=== PATIENT | male | born 1960 | race Caucasian/White ===

== ENCOUNTER → 2016-08-18 | Outpatient (CLI) | payer MEDICARE ==
[~2016-08-18] MED LIST: AMARYL2 MG PO; ARTIFICIAL TEAR15 ML OPHTH; CARBAMAZEPINE200 MG PO; COLACE100 MG PO; CPAP INH; CYMBALTA60 MG PO; DILANTIN100 MG PO; DRISDOL 5050000 UNIT PO; FEOSOL325 MG PO; KCL - MICRO-K10 MEQ PO; LASIX20 MG PO; MYRBETRIQ50 MG PO; NORCO 5-325 TA1 EACH PO; OMEPRAZOLE40 MG PO; PRINIVIL OR ZES10 MG PO; RISPERDAL0.25 M1 PO; SEROQUEL50 MG PO; TYLENOL EXTRA500 MG PO; XALATAN2.5 ML OPHTH
--- NOTE | ~2016-08-18 | PUL ---
PATIENT'S NAME: CYRUS SANTIAGO [facility] AGE: 55 Y [address] ROOM: [place] [address] LOCATION: [facility] ADMIT DATE: 08/18/2016 Pulmonary DISCHARGE DATE: FAMILY PHYSICIAN: Leobardo Pinto MD ATTENDING PHYSICIAN: Ezekiel Epps NAME OF PROCEDURE: Sleep study DATE OF PROCEDURE: 08/18/16 TECH: Ami Stevens, PHOTOCOPYING MACHINE OPERATOR [place]: [facility] [id number] MEDICAL HISTORY: Patient is a 55-year-old gentleman with a prior history of obstructive sleep apnea. SLEEP STAGE SUMMARY: The patient was studied for 436 minutes of which he slept 419 minutes. He fell asleep in less than a minute and slept for 96% of the night. Sleep architecture revealed a decline in slow wave and REM sleep. RESPIRATORY SUMMARY: This study was done to titrate CPAP. CPAP was initiated at 6 cm and ultimately titrated to 15 cm. Patient pulled the mask off on several occasions and initially refused to put it back on. CPAP at 15 cm did control the respiratory events well. EKG SUMMARY: Average heart rate during sleep 68 beats per minute. LIMB MOVEMENT SUMMARY: No clinically relevant periodic limb movements were noted. SUMMARY: Obstructive sleep apnea. 15 cm of CPAP appears adequate to control the respiratory events. ASSESSMENT: Obstructive sleep apnea responsive to CPAP at 15 cm. PLAN: Suggest CPAP at 15 cm. Patient will receive results from the ordering provider. DAVIS MERAZ MD [facility]/ PATIENT'S NAME: CYRUS SANTIAGO [facility] AGE: 55 Y [address] ROOM: [place] [address] LOCATION: [facility] ADMIT DATE: 08/18/2016 Pulmonary DISCHARGE DATE: FAMILY PHYSICIAN: Leobardo Pinto MD ATTENDING PHYSICIAN: Ezekeil Epps /[id number] dtt: 09/09/16 1454 , Davis Meraz dtd: 08/27/16 1037
== END | disposition disaster alternative care site (69) ==
LOC: GSLP 07-29 21:00
DX: G47.10 Hypersomnia, unspecified (principal); G47.33 Obstructive sleep apnea (adult) (pediatric)

== ENCOUNTER 2016-09-05 18:19 | Observation (INO) | payer MEDICARE ==
[~2016-09-05] VITALS: Ht 180.3 cm; Wt 148.0 kg
--- NOTE | ~2016-09-05 | HP ---
PATIENT'S NAME: CYRUS SANTIAGO [facility] AGE: 55 Y [address] ROOM: [place] [address] LOCATION: [facility] [place] ADMIT DATE: 09/05/2016 History & Physical DISCHARGE DATE: 09/07/2016 FAMILY PHYSICIAN: Leobardo Pinto MD ATTENDING PHYSICIAN: RJ GUTHRIE DATE OF SERVICE: CHIEF COMPLAINT: Lightheadedness. HISTORY OF PRESENT ILLNESS: History was obtained from the patient. This is a 55-year-old male with remote history of brain cancer diagnosed in 1997, status post craniotomy and radiation, essential hypertension, who was brought in from an assisted living facility. As per patient, he reported that around suppertime 6:30 that he felt lightheaded and so was brought into the emergency room of [facility] as a stroke alert. On arrival to the ER, he was seen by Dr. Mclaughlin, had a CT head done, which essentially was negative except for signs of surgery to the brain and subsequently had an MRI done, which did not show any acute stroke, and the patient was admitted for observation. He reported that during this episode, he denies chest pain, he denied headache except for the lightheadedness, denied blurry of vision, denies any weakness in any extremity except for his chronic right hemiparesis, right upper extremity weaker than the right lower extremity. Denies abdominal pain. Denies neck pain. Denies back pain. He reported that he woke up this morning in his usual state of health without any problem. Denies cough. Denies shortness of breath. Denies diarrhea. Denies urinary symptoms. REVIEW OF SYSTEMS: The 13-elements of review of systems were asked and as documented in the HPI. The others are negative. PAST MEDICAL HISTORY: Includes: 1. History of brain cancer. 2. Essential hypertension though he reports is borderline. 3. Diabetes, he reports is borderline. 4. Per old record, bipolar. PAST SURGICAL HISTORY: Includes craniotomy and vasectomy. SOCIAL HISTORY: He lives in an assisted living facility. Denies history of smoking. PATIENT'S NAME: CYRUS SANTIAGO [facility] AGE: 55 Y [address] ROOM: [place] [address] LOCATION: [facility] [place] ADMIT DATE: 09/05/2016 History & Physical DISCHARGE DATE: 09/07/2016 FAMILY PHYSICIAN: Leobardo Pinto MD ATTENDING PHYSICIAN: RJ GUTHRIE Occasionally takes alcohol. FAMILY HISTORY: Mother at age of 76 had brain cancer. Father in his 70s as well had heart attack. PHYSICAL EXAMINATION: VITAL SIGNS: Blood pressure 133/45, pulse 73, oxygen saturation 97% on room air, respiratory rate 18, and temperature 99.0. GENERAL: Examination reveals a young male who is alert, awake, oriented x3. NEUROLOGIC: Cranial nerves 2 through 12 are intact bilaterally. Sensory is intact bilaterally. Power on the left upper and left lower extremity is full, power on the right upper extremity is a 3, and power in the right lower extremity is a 3+. HEENT: Traumatic surgical scar to the left side of the scalp. Pupils equal and reactive to light bilaterally. Pharynx is normal. Mucosa is moist. NECK: Short, obese, supple. There is no area of tenderness. EARS: There is no obvious ear discharge or drainage. CARDIOVASCULAR: Normal S1, S2. Regular rate and rhythm. CHEST: Clear to auscultation bilaterally. ABDOMEN: Soft, nondistended, no area of tenderness. No palpable organomegaly. Positive bowel sounds. EXTREMITIES: Right upper extremity is swollen, nontender, and no erythema. All other part of the extremities appear normal. RJ GUTHRIE MD ODO/modl /[id number] D: [id number] T: [id number] HISTORY & PHYSICAL
--- NOTE | ~2016-09-05 | ECHO ---
Transthoracic Echocardiography Report (TTE) Demographics Patient Name CYRUS SANTIAGO Date of Study 09/06/2016 Patient Number [id number] Visit Number [id number] Date of 1960 Room Number G3203 Gender Male Number Age 55 year(s) Referring Millie Pennington Manager Flight [address] RVT, Physician RDCS Physician Interpreting Elizabeth Garcia Food Preparation Kitchen Aide Physician A Supervising Ordering Shakeel Sherman MD/MLP Physician MD Nurse Stress Toll Line Mechanic Conclusions Contractility Score Summary Normal Left Ventricular contractility was noted. Summary Technically fair exam. The estimated left ventricular ejection fraction is 65%. Moderate concentric left ventricular hypertrophy. Diastolic assessment reveals Grade II pseudonormal diastolic function . The aortic root is borderline dilated measuring 3.2 cm. The ascending aorta is mildly dilated measuring 3.7 cm. Procedure Type of Study TTE procedure:2D Echocardiogram. Procedure Date Date: 09/06/2016 Start: 02:33 PM Study Location: Inpatient Portable Technical Quality: Fair due to body habitus. Indications:Bilateral lower extremity edema. Appropriate Use Criteria: 7 Patient Status: Routine Rhythm: NSR HR: 74 bpm BP: 156/74 mmHg M-Mode/2D Measurements LV Diastolic Dimension: 5.5 cm LV Systolic Dimension: 4.92 cm LV Septum Diastolic: 1.71 cm LV PW Diastolic: 1.32 cm AO Root Dimension: 3.2 cm Cardiac Output: 10.09 l/min AV Cusp Separation: 2.4 cm RV Diastolic Dimension: 2.69 cm LA volume: 73 ml LVOT: 2.6 cm RV Base: 3.17 cm LVOT VTI: 25.7 cm RV Mid: 2.84 cm LV Stroke volume: 136.38 ml TAPSE: 1.91 cm TDI-S': 17 cm/s Doppler Measurements AV Peak Velocity: 1.49 m/s MV Peak E-Wave: 1.08 m/s AV Peak Gradient: 8.88 mmHg MV Peak A-Wave: 0.8 m/s AV Mean Gradient: 6 mmHg MV E/A Ratio: 1.36 LVOT Peak Velocity: 1.16 m/s MV P1/2t: 74 msec TR Gradient:21.34 mmHg PV Peak Velocity: 1.34 m/s Estimated RAP:5 mmHg PV Peak Gradient: 7.18 mmHg Estimated RVSP: 26 mmHg Estimated PASP: 26.34 mmHg E' Septal Velocity: 0.09 m/s A' Septal Velocity: 0.08 m/s E' Lateral Velocity: 0.12 m/s A' Lateral Velocity: 0.09 m/s Findings Left Ventricle Moderate concentric left ventricular hypertrophy. Diastolic assessment reveals Grade II pseudonormal diastolic function . Right Ventricle Mildly dilated right ventricle. Normal right ventricular systolic performance. Left Atrium The left atrium is moderately dilated. There is no evidence of patent foramen ovale or atrial septal defect by color Doppler. Right Atrium The right atrium is mildly dilated. Unable to properly visualize the IVC subcostally. Mitral Valve Normal mitral valve structure and function. Trivial mitral regurgitation. Aortic Valve Normal aortic valve structure and function. Tricuspid Valve Normal appearing tricuspid valve. Trivial tricuspid regurgitation by color Doppler. Pulmonic Valve Normal pulmonic valve structure and function. Pericardial Effusion No evidence of pericardial effusion. Miscellaneous The aortic root is borderline dilated measuring 3.2 cm. The ascending aorta is mildly dilated measuring 3.7 cm. Pleural Effusion No evidence of pleural effusion. Contractility Score LV regional wall motion:(0-Non visualized 1-Normal 2-Hypokinesis 3-Akinesis 4-Dyskinesis 5-Aneurysm) Signature dtt: Radha Johnson dtd: 09/06/16 1433 Physician Self Edit
--- NOTE | ~2016-09-05 | ER ---
PATIENT'S NAME: CYRUS SANTIAGO [facility] AGE: 55 Y [address] ROOM: [place] [address] [place] [facility] [place]: 09/05/[place] ER/Outpatient Report DISCHARGE DATE: FAMILY PHYSICIAN: Leobardo Pinto MD ATTENDING PHYSICIAN: RJ GUTHRIE Admission date and time dictated in the medical record. I saw the patient at 1822 hours. CHIEF COMPLAINT: Right-sided weakness, speech difficulties. HISTORY OF PRESENT ILLNESS: This patient is a 55-year-old male, [facility] and had some lightheadedness. He has some right-sided weakness and speech difficulties, but this could be a chronic nature. The patient did have in the past a malignant brain tumor, left frontal lobe. This excised and he had radiation treatment. The patient has history of seizures post brain tumor resection. The patient is on Tegretol. The patient did not fall or have any trauma. No recent colds, coughs, flus, fever, chills, or sweats. He did have some lightheaded dizziness. No syncope or near syncope. No headache, eyes, ears, nose, throat, neck, or spine pain. No chest pain or shortness of breath. No abdominal pain, nausea, vomiting, or diarrhea. No incontinence of stool or urine. He does have a history of seizure disorder, history of brain tumor, left frontal lobe. No history of CVA or TIA. He does have a bipolar disorder with anxiety and depression. He does have gvj-fchtvtd-fuafvqrlh diabetes mellitus type 2. HOME MEDICATIONS: See attached medication list. ALLERGIES: NONE. SOCIAL HISTORY: Nonsmoker. Occasional intake of alcohol. SIGNIFICANT PAST MEDICAL HISTORY: Hypertension; obstructive sleep apnea; seizure disorder; fiw-wouzwjj-zeykdequd diabetes mellitus type 2; cancer to brain tumor; bipolar disorder with anxiety, depression; nephrolithiasis, disabled; chronic back pain with lumbar spinal stenosis and some cervical spinal stenosis; insomnia; exogenous obesity; and colon polyps. OPERATION: PATIENT'S NAME: CYRUS SANTIAGO [facility] AGE: 55 Y [address] ROOM: [place] [address] [place] [facility] [place]: 09/05/2016 ER/Outpatient Report DISCHARGE DATE: FAMILY PHYSICIAN: Leobardo Pinto MD ATTENDING PHYSICIAN: RJ GUTHRIE Colonoscopy; brain biopsy; craniotomy with brain tumor resection, left frontal lobe; epidural steroid injections; vasectomy; and radiation therapy. REVIEW OF SYSTEMS: All systems reviewed by me are negative with the exception of those discussed in the history of the present illness. PHYSICAL EXAMINATION: VITAL SIGNS: Temperature 98, tympanic; pulse 76, regular; respirations 16; blood pressure 116/58; O2 saturation on room air was 93%. HEENT: Head: Normocephalic. No abrasion, contusion, laceration, swelling of the scalp or face. Eyes: Extraocular muscles are intact, PERRL. Sclerae and conjunctivae are clear, nonicteric. Ears, Nose, Throat: Clear. NECK: Negative. SPINE: Negative. LUNGS: Clear. HEART: Regular. ABDOMEN: Obese, soft, nondistended, and nontender. Good bowel tones. EXTREMITIES: No peripheral edema, cyanosis, or deformity. NEURO: The patient has some right-sided weakness and little bit of right facial droop and some speech difficulties. He had an NIH stroke scale of 2. SKIN: Clear. LABORATORY DATA: Prolactin was normal at 12.8. Tegretol level was normal at 10.1. Renal panel was normal except for an elevated glucose of 212, low calcium of 8.4. Troponin was normal at less than 0.04, white count was 3100, 63 segs, 34 lymphs, 11 monos, 2 eos, 1 baso. Hemoglobin was 12.5, hematocrit 35.8, platelet count was 60,000. PTT was 29, pro time is 11.4 with an INR of 1.1. EKG showed sinus rhythm. No acute ST elevation, ischemic change, or arrhythmia. CT scan of the head showed a small lesion in the left frontal lobe, question hemorrhage versus recurrent tumor. This area of the lesion was where his previous brain tumor was excised. CT scan was read by Radiology, see dictated and transcribed report. The radiologist did recommend MRI with and without contrast of the brain. IMPRESSION: 1. Right-sided weakness with right facial weakness and speech difficulties. Also, has dizziness and lightheadedness. Etiology uncertain. However, the patient did have a new lesion in the left frontal lobe on CT scan of the brain that could be a small hemorrhage versus recurrent tumor. MRI of the brain is pending. 2. Thrombocytopenia with a platelet count of 60,000. 3. Fqr-xyydiop-bbbyisfzz diabetes mellitus type 2. 4. History of seizure disorder. PATIENT'S NAME: CYRUS SANTIAGO [facility] AGE: 55 Y [address] ROOM: [place] [address] [place] [facility] [place]: 09/05/2016 ER/Outpatient Report DISCHARGE DATE: FAMILY PHYSICIAN: Leobardo Pinto MD ATTENDING PHYSICIAN: RJ GUTHRIE 5. History of obstructive sleep apnea. 6. History of hypertension. 7. History of a bipolar disorder with anxiety, depression. 8. The patient is disabled. 9. Chronic back pain with lumbar spinal stenosis and cervical spinal stenosis. 10. Exogenous obesity. 11. Insomnia. PLAN: Dr. Mclaughlin, neurologist, was here to see this patient. The patient presented with stroke alert. See Dr. Mclaughlin's dictation in regard to his neurological assessment. Dr. Mclaughlin thought the patient should be observed in the hospital. I did talk with the hospitalist, Dr. Neumann. Dr. Neumann is going to admit the patient to neuro trauma for further observation, workup, and treatment as necessary. MRI scan of the brain with and without contrast is pending. Critical care time is 30 minutes. MD JOSE E LOVE/modl /[id number] d: 09/06/16 0031 t: 09/06/16 0523, OUTPATIENT REPORT
--- NOTE | ~2016-09-05 | CON ---
PATIENT'S NAME: CURT SANTIAGO [facility] AGE: 55 Y [address] ROOM: [address] [address] [place] [facility] [place]: 09/05/2016 Consultation DISCHARGE DATE: FAMILY PHYSICIAN: Leobardo Pinto MD ATTENDING PHYSICIAN: RJ GUTHRIE DATE OF CONSULTATION: 09/05/2016 The patient was seen in neurologic consultation on 09/05/2016 at 6:25 p.m. HISTORY OF PRESENT ILLNESS: I was called to the emergency room to evaluate Curt Santiago who has a known history of chronic right upper extremity weakness along with some mild weakness in his right lower extremity and a bit of ambulation deficit due to a prior brain tumor. Back in 1998, he had an oligodendroglioma resected at [facility] and he was placed on antiseizure medication at that time, because he presented with a grand mal seizure. However, he has no history to suggest seizures recurrent. After that postsurgery, the patient has done well and there has been stable history of his tumor. About 1 year ago, he went to [place] to reside at the [facility]. He does have a history of behavioral abnormalities possibly associated with being emotionally labile, acting out, likely history possibly of a bipolar disease. He also has a history of diabetes, nephrolithiasis, and chronic opiate use associated with low back pain and cervical neck back pain. He recently had a workup with a cervical MRI. It showed that he has severe central canal stenosis of the cervical region around C5-C6. Basically, the patient presented to the ER this evening from [place] with some light headed complaints. According to the persons at [place], they felt that he had a little bit more slurring of his speech and was more lethargic. When he was seen here in the emergency room, he was able to lift his right arm and right leg though there was a subtle drift to his right arm; however, we found that from the family that he has this chronic right upper extremity weakness in general. He was sent for a CAT scan of the brain which showed a fairly large area of a left encephalomalacia where the tumor was resected back in 1998. There was a slight hyperdensity measuring a few millimeters in the area of the encephalomalacia. The radiologist felt that this could represent a very tiny small bleed or even some recurrence of his tumor. They recommend that he get an MRI. So basically from a neurologic standpoint, he has no new neurologic deficits. His basic speech was slurred, but this was his again baseline. His right upper extremity power drift was his baseline also and his bilateral lower extremity power was symmetric. The patient did not show any evidence to suggest a new stroke; however again the finding of a small punctate hemorrhage if possible may have been associated with the patient feeling suddenly lethargic. PATIENT'S NAME: CURT SANTIAGO [facility] AGE: 55 Y [address] ROOM: [address] [address] [place] [facility] [place]: 09/05/2016 Consultation DISCHARGE DATE: FAMILY PHYSICIAN: Leobardo Pinto MD ATTENDING PHYSICIAN: RJ GUTHRIE The patient denied any illicit drug use such as cocaine. He does use [place] for chronic back pain. PRIOR MEDICAL HISTORY: History of hypertension and history of possible suicide attempts. PAST SURGICAL HISTORY: He had a vasectomy, a history of resection of the oligodendroglioma, 1998. ALLERGIES: REPORTED TO IBUPROFEN. CURRENT MEDICATIONS: Medication list is unknown at this time. FAMILY HISTORY: Noncontributory here. REVIEW OF SYSTEMS: Mr. Santiago has chronic right upper extremity weakness with only subtle weakness in his right lower extremity. He apparently walks with the use of a walker. He resides at [place] for one year. He was sent in because he had a bit more slurring of the speech and possibly associated with some lethargy; however, the patient appears to be a bit sleepy, but otherwise is communicative. He demonstrates no evidence of any aphasia. He was able to answer all questions appropriately and his naming of objects and parts of objects was completely normal. Cross-body commands were performed. PHYSICAL EXAMINATION: VITAL SIGNS: The patient's vital signs showed a pulse of 62 and regular and normal sinus rhythm, respiration rate 18, blood pressure 168/85, temperature is 98.3. CRANIAL NERVES: There is some facial subtle flattening of the nasolabial fold which is chronic. There was no new facial droop. There is normal facial sensation. NECK: Supple on flexion and extension. There is a power of 4+/5 in the right upper extremity which is chronic in the right lower extremity. The patient displays nearly 5/5 power on proximal and distal muscle power; however there is increased tone in the right lower extremity. In the left upper extremity and the left lower extremity, there is normal power and normal tone. Reflexes were diminished in the right upper extremity to +1 at the biceps and triceps. Absent patellar reflex on the right and absent ankle jerk. Sensory exam is completely intact distinguishing [id number]-[id number] sensation. Right to left discrimination was completely normal. There was no extinction. IMPRESSION: PATIENT'S NAME: CURT SANTIAGO [facility] AGE: 55 Y [address] ROOM: [place] [address] [place] [facility] [place]: 09/05/2016 Consultation DISCHARGE DATE: FAMILY PHYSICIAN: Leobardo Pinto MD ATTENDING PHYSICIAN: RJ GUTHRIE Mr. Santiago is a 55-year-old male patient with few medical issues neurologically. He has been stable since the resection of an oligodendroglioma in 1998. Post surgery, he chronically has some weakness of his right upper lower extremity more than his right lower extremity. He appears to be in his baseline according to his family who know him well. His sister was here present and she reports that he was just a bit more lethargic than usual, but otherwise, she did not notice any change in his speech pattern or his weakness. The patient will be admitted overnight for observation and we will receive an MRI of the brain for ruling out any evidence of the small hemorrhage. The etiology for small hemorrhage would be at this point is obscure and we would rule out evidence of a small infarct; however the clinically it is difficult to find anything obviously new neurologically with the patient's presentation. I will follow up with the patient's neurologic status as he will be placed on a monitored bed overnight. MD AURORA OLMOS/cristal /[id number] d: 09/06/16 0039 t: 09/09/16 1554, CONSULTATION REPORT
--- NOTE | ~2016-09-05 | DS ---
PATIENT'S NAME: CYRUS SANTIAGO [facility] AGE: 55 Y [address] 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 SECONDARY DIAGNOSES: 1. History of oligodendroglioma in 1998, status post resection, radiation, chemotherapy. 2. Grade 2 pseudonormal diastolic dysfunction. 3. Dilated aortic root at 3.2 cm and ascending aorta at 3.7 cm. 4. Mild hypokalemia, chronic. 5. Thrombocytopenia, unclear etiology. 6. Chronic mild right hemiparesis. 7. Right arm edema, chronic x8 months per the patient. 8. Obstructive sleep apnea. 9. Morbid obesity. CONSULTATIONS: Neurology, Dr. Mclaughlin, on 09/05/2016. PROCEDURES: Echocardiogram, abnormal findings listed above included abnormal diastolic dysfunction, dilated aortic root, and mild concentric left ventricular hypertrophy. His left ventricular ejection fraction is estimated at 65%. BRIEF HISTORY: Mr. Santiago has been living at [facility] for the past year and has a history of oligodendroglioma. According to his sister with whom I spoke yesterday he does sometimes have fluctuation in his mental status. It seems to be somewhat worse with lightheadedness. The staff noted more slurring of his speech and he seemed to be more lethargic. He does have chronic right arm weakness and was noted to have a drift in the right arm on neurologic evaluation by Dr. Mclaughlin on admission, but essentially his exam was close to baseline in the emergency room. Imaging did reveal an area of encephalomalacia on CT scan and followup MRI showed a small lesion in the left frontal white matter with an appearance most consistent with cavernoma which has bled, there was no evidence consistent with tumor. The patient has been monitored here over the last 24 hours and is doing well, his speech is normal. He reports to me that he feels a little sleepy. He has been on CPAP for at least a couple of years and had a repeat titration study a PATIENT'S NAME: CYRUS SANTIAGO [facility] AGE: 55 Y [address] ROOM: [address] [address] LOCATION: [facility] ADMIT DATE: 09/05/2016 Discharge Summary DISCHARGE DATE: 09/07/2016 FAMILY PHYSICIAN: Leobardo Pinto MD ATTENDING PHYSICIAN: Willi Beckford couple weeks ago. He has not received results of this titration study from Dr. Cunningham as of yet, but I advised him to follow up with Dr. Cunningham to get the results and he may need change in the settings of his CPAP machine. The patient had a seizure at the time of diagnosis of his brain tumor and has been treated with carbamazepine chronically to prevent seizures. However, he has had thrombocytopenia for several years, he has also had depression, behavior problems, and suicidality. I discussed this with his sister and she confirms that the thrombocytopenia occurred after the drug was started and the suicidal problem was a couple years ago, also while on carbamazepine. After discussion with Dr. Mclaughlin, I decided to discontinue the carbamazepine. I did inform his sister of this this morning. He was given a loading dose of Dilantin and started on Dilantin 100 mg p.o. t.i.d. He is instructed to follow up with his outpatient neurologist, Dr. Epps. The Dilantin level is pending at the time of this dictation. The patient has chronic hypokalemia, he is on b.i.d. supplements. We will check his potassium level and adjust the dose as needed. This is also pending at the time of dictation. INSTRUCTIONS AT THE TIME OF DISCHARGE: Diet; ADA, low carb, low fat. Activity; walk 30 minutes a day. Follow up with Dr. Epps, Neurology, in 2 weeks. Prior to that he should have a CT scan of the head, noncontrast. It is also recommended that he have an MRI scan in 2 to 3 months with and without contrast to follow up on the new imaging findings. He is to follow up with his PCP in less than 1 week. I have recommended new cardiology evaluation to review the abnormal findings on his echocardiogram. Dr. Cunningham, he at least needs a phone call to him to determine new orders for CPAP if any. MEDICATIONS AT THE TIME OF DISCHARGE: 1. Almo 5/325 one p.o. b.i.d. 2. Docusate 100 p.o. daily. 3. Cymbalta 60 mg daily. 4. Lasix 20 mg daily. 5. Amaryl 2 mg p.o. b.i.d. with meals. 6. Xalatan drops, both eyes q.h.s. 7. Prinivil 10 daily. PATIENT'S NAME: CYRUS SANTIAGO [facility] AGE: 55 Y [address] ROOM: [place] [address] LOCATION: [facility] ADMIT DATE: 09/05/2016 Discharge Summary DISCHARGE DATE: 09/07/2016 FAMILY PHYSICIAN: Leobardo Pinto MD ATTENDING PHYSICIAN: Willi Beckford 8. Omeprazole 40 every day. 9. Potassium chloride 10 mEq p.o. b.i.d. 10. Seroquel 50 mg q.h.s. 11. Vitamin D 50,000 units weekly on Thursday. 12. Myrbetriq 50 mg daily. 13. Tylenol 500 mg t.i.d. p.r.n. pain. I have written instructions not to exceed 4 g of Tylenol in 24 hours. 14. Artificial Tears q.i.d. p.r.n. dry eyes. 15. Dilantin 100 mg p.o. t.i.d. AMBAR MARTINEZ MD LM/kirkl /[id number] d: 09/08/16 0534 t: 09/08/16 1433, DISCHARGE SUMMARY
--- NOTE | ~2016-09-05 | HP ---
PATIENT'S NAME: CYRUS SANTIAGO [facility] AGE: 55 Y [address] ROOM: [place] [address] LOCATION: [facility] [place] ADMIT DATE: 09/05/2016 History & Physical DISCHARGE DATE: 09/07/2016 FAMILY PHYSICIAN: Leobardo Pinto MD ATTENDING PHYSICIAN: RJ GUTHRIE DATE OF SERVICE: ADDENDUM: ASSESSMENT AND PLAN: 1. Obstructive sleep apnea. We will continue the patient on CPAP. 2. Thrombocytopenia, present on admission, unknown etiology. Apparently has been present since last year. 3. Leukopenia, present on admission, unknown etiology. RJ GUTHRIE MD ODO/kirkl /[id number] D: [id number] T: [id number] HISTORY & PHYSICAL
--- NOTE | ~2016-09-05 | HP ---
PATIENT'S NAME: CYRUS SANTIAGO [facility] AGE: 55 Y [address] ROOM: [address] [address] LOCATION: [facility] [place] ADMIT DATE: 09/05/2016 History & Physical DISCHARGE DATE: 09/07/2016 FAMILY PHYSICIAN: Leobardo Pinto MD ATTENDING PHYSICIAN: RJ GUTHRIE DATE OF SERVICE: ADDENDUM: PHYSICAL EXAMINATION: SKIN: No rash. No skin breakdown elapsed. LABORATORY DATA: WBC 3.1, hemoglobin 12.5, hematocrit 35.8, platelets 60. Sodium 142, creatinine 1.0, BUN 13, glucose 212, potassium 3.9, chloride 107, bicarb 25, calcium 8.4, phosphorus 3.2, albumin 3.0, procalcitonin 12.8. RADIOLOGY DATA: MRI, small lesion in the left frontal white matter, has an appearance most consistent with cavernoma, which has blood. There is no evidence of tumour. Cavernomas can be seen after radiation therapy. We will add for interval followup of CT to ensure stability and then followup MRI in perhaps 2 to [address] of the brain, there is a small lesion in the left frontal lobe, which may be hemorrhagic tumor. There are almost chronic changes including previous surgery. ASSESSMENT AND PLAN: This is a 55-year-old male, who presents with some lightheadedness. 1. Lightheadedness, present on admission. We will do orthostatic vital signs to rule out orthostatic hypotension. MRI is essentially negative as workup for stroke. However, we will complete the other workup for stroke. We will do a carotid duplex scan in the morning. We will also get an echocardiogram in the morning. 2. Right upper extremity edema, present on admission. The patient reports this is chronic. However, we will do a duplex scan of his right upper extremity to rule out a deep venous thrombosis. 3. Right hemiparesis, present on admission. This is chronic for the patient since the left craniotomy. We will continue with PT and OT. 4. Diabetes type 2. Likely, this appears to be uncontrolled. We will check hemoglobin A1c. We will put the patient on a NovoLog sliding scale moderate. 5. Remote history of brain tumor, present on admission. Last chemo was in PATIENT'S NAME: CYRUS SANTIAGO [facility] AGE: 55 Y [address] ROOM: [address] [address] LOCATION: [facility] [place] ADMIT DATE: 09/05/2016 History & Physical DISCHARGE DATE: 09/07/2016 FAMILY PHYSICIAN: Leobardo Pinto MD ATTENDING PHYSICIAN: RJ GUTHRIE year 1999. The line of management was explained to the patient, who did not have any questions at this time. MD SUKI CHURCHILL/kirkl /[id number] D: [id number] T: [id number] HISTORY & PHYSICAL
[~2016-09-05 18:19] MED LIST changes: -ARTIFICIAL TEAR15 ML OPHTH; -DILANTIN100 MG PO; -DRISDOL 5050000 UNIT PO; -PRINIVIL OR ZES10 MG PO; -SEROQUEL50 MG PO; -TYLENOL EXTRA500 MG PO
[2016-09-05 18:35] LABS: BASOPHIL % 0.6 %; EOSINOPHIL # 0.1 K/uL (0.0-0.5); EOSINOPHIL % 2.2 %; HEMATOCRIT 35.8 % (37.0-53.0); HEMOGLOBIN 12.5 g/dL (12.0-17.0); LYMPHOCYTE # 0.7 K/uL (0.8-4.0); LYMPHOCYTE % 23.6 %; MCH 33.2 pg (27.0-34.0); MCHC 34.9 gm/dL (32.0-36.5); MONOCYTE # 0.3 K/uL (0.0-1.0); MONOCYTE % 10.9 %; NEUTROPHIL % 62.7 %; NRBC % 0 /100WBC (0-0.00); PLATELET COUNT 60 K/uL (150-450); RBC 3.77 M/uL (4.00-6.00); RDW-CV 13.2 % (11.9-14.6); WBC 3.1 K/uL (4.0-11.0)
[2016-09-05 18:42] LABS: INR - (THERAPEUTIC) 1.1 (0.9-1.1); PROTIME 11.4 SECONDS (9.6-11.1); PTT 29 SECONDS (25-32)
[2016-09-05 18:52] LABS: ANION GAP 13.9 (10.0-19.0); BLOOD UREA NITROGEN 13 mg/dL (6-24); CALCIUM 8.4 mg/dL (8.5-10.5); CHLORIDE 107 mMol/L (96-110); CO2 25 mMol/L (22-32); ESTIMATED GFR (MDRD EQUATION) > 60; PHOSPHORUS 3.2 mg/dL (2.5-4.9); SODIUM 142 mMol/L (135-145)
[2016-09-05 18:53] LABS: POTASSIUM 3.9 mMol/L (3.7-5.1)
[2016-09-06] MEDS ORDERED: PRINIVIL OR ZES10 MG PO (02:28)
[2016-09-06] MEDS ORDERED: SEROQUEL50 MG PO (02:29)
[2016-09-06] MEDS ORDERED: TYLENOL EXTRA500 MG PO (02:30)
[2016-09-06] MEDS ORDERED: ARTIFICIAL TEAR15 ML OPHTH (02:31)
[2016-09-06] MEDS ORDERED: DRISDOL 5050000 UNIT PO (02:33)
[2016-09-06 04:19] LABS: BASOPHIL % 0.6 %; EOSINOPHIL # 0.1 K/uL (0.0-0.5); EOSINOPHIL % 2.3 %; HEMATOCRIT 36.6 % (37.0-53.0); HEMOGLOBIN 12.6 g/dL (12.0-17.0); LYMPHOCYTE # 0.9 K/uL (0.8-4.0); MCH 32.4 pg (27.0-34.0); MCHC 34.4 gm/dL (32.0-36.5); MCV 94.1 fl (83.0-98.0); MONOCYTE # 0.5 K/uL (0.0-1.0); MONOCYTE % 13.6 %; MPV 8.4 fl (9.4-12.4); NEUTROPHIL % 56.5 %; NRBC % 0 /100WBC (0-0.00); RBC 3.89 M/uL (4.00-6.00); RDW-CV 13.3 % (11.9-14.6); WBC 3.5 K/uL (4.0-11.0)
[2016-09-06 04:21] LABS: PLATELET COUNT 58 K/uL (150-450)
[2016-09-06 04:31] LABS: ANION GAP 11.4 (10.0-19.0); BLOOD UREA NITROGEN 13 mg/dL (6-24); CALCIUM 8.1 mg/dL (8.5-10.5); CHLORIDE 110 mMol/L (96-110); CO2 27 mMol/L (22-32); CREATININE 0.8 mg/dL (0.6-1.3); ESTIMATED GFR (MDRD EQUATION) > 60; MAGNESIUM 2.2 mg/dL (1.3-2.6); PHOSPHORUS 3.4 mg/dL (2.5-4.9); POTASSIUM 3.4 mMol/L (3.7-5.1); SODIUM 145 mMol/L (135-145)
[2016-09-07] MEDS ORDERED: DILANTIN100 MG PO (11:02)
[2016-11-21] MEDS ORDERED: DILANTIN100 MG PO ×2 (10:19→10:20)
[2016-11-21] MEDS ORDERED: FEOSOL325 MG PO (10:21)
== END 2016-09-07 11:14 | disposition disaster alternative care site (69) ==
LOC: GMED 18:19 → GMSU 20:09
PROVIDERS: Emergency Medicine; ADMIT Hospitalist
DX: R29.810 Facial weakness (principal); F80.9 Developmental disorder of speech and language, unspecified; G93.89 Other specified disorders of brain; G81.90 Hemiplegia, unspecified affecting unspecified side; Z85.841 Personal history of malignant neoplasm of brain; E11.9 Type 2 diabetes mellitus without complications; E87.6 Hypokalemia; D69.59 Other secondary thrombocytopenia; F41.8 Other specified anxiety disorders; F31.9 Bipolar disorder, unspecified; G47.33 Obstructive sleep apnea (adult) (pediatric); R60.0 Localized edema; E66.01 Morbid (severe) obesity due to excess calories; I10 Essential (primary) hypertension; Z98.52 Vasectomy status; Z79.899 Other long term (current) drug therapy; Z98.890 Other specified postprocedural states
CPT/HCPCS: A9577; G0378; J1644; J7030; J7040; Q2009

== ENCOUNTER → 2016-09-05 | Outpatient (CLI) | payer MEDICARE | END | disposition disaster alternative care site (69) | LOC: GAMB 18:02 | DX: I63.9 Cerebral infarction, unspecified (principal); R47.81 Slurred speech; R29.898 Other symptoms and signs involving the musculoskeletal system | CPT/HCPCS: A0425; A0427 ==

== ENCOUNTER → 2016-09-16 | Outpatient (CLI) | payer MEDICARE ==
[~2016-09-16] MED LIST changes: +ARTIFICIAL TEAR15 ML OPHTH; +DILANTIN100 MG PO; +DRISDOL 5050000 UNIT PO; +PRINIVIL OR ZES10 MG PO; +SEROQUEL50 MG PO; +TYLENOL EXTRA500 MG PO
== END | disposition disaster alternative care site (69) ==
LOC: GRAD 13:57
DX: I61.9 Nontraumatic intracerebral hemorrhage, unspecified (principal); G93.89 Other specified disorders of brain

== ENCOUNTER → 2016-11-13 | Outpatient (CLI) | payer MEDICARE, MEDICAID ==
[2016-11-13 11:01] LABS: CREATININE 1.2 mg/dL (0.6-1.3)
[2016-11-13 11:05] LABS: ESTIMATED GFR (MDRD EQUATION) > 60
== END | disposition disaster alternative care site (69) ==
LOC: GRAD 09-24 09:56 → GLAB 10:00 → GRAD 11:00
PROVIDERS: Internal Medicine
DX: D18.02 Hemangioma of intracranial structures (principal); N13.2 Hydronephrosis with renal and ureteral calculous obstruction; Q61.02 Congenital multiple renal cysts; I70.90 Unspecified atherosclerosis; E87.6 Hypokalemia; G81.91 Hemiplegia, unspecified affecting right dominant side; K76.9 Liver disease, unspecified; R60.0 Localized edema; Z98.890 Other specified postprocedural states
CPT/HCPCS: A9577

== ENCOUNTER 2016-11-25 07:04 | Day surgery (SDC) | payer MEDICARE, MEDICAID ==
[~2016-11-25] VITALS: Ht 180.3 cm; Wt 145.0 kg
--- NOTE | ~2016-11-25 | OR ---
PATIENT'S NAME: CYRUS SANTIAGO [facility] AGE: 56 Y [address] ROOM: [place] [address] LOCATION: [facility] [place] ADMIT DATE: 11/25/2016 OR/Procedure Report DISCHARGE DATE: FAMILY PHYSICIAN: Dominique Dickens ATTENDING PHYSICIAN: Jesse Velarde SURGEON: Jesse Velarde MD ACETYLENE BURNER: DATE OF PROCEDURE: 11/25/2016 PREOPERATIVE DIAGNOSIS: Right proximal ureteral stone. POSTOPERATIVE DIAGNOSIS: Right proximal ureteral stone. PROCEDURES PERFORMED: 1. Cystoscopy, insertion of stent 6-Slovak, 28 cm. 2. Extracorporeal shock wave lithotripsy of right proximal ureteral stone. DESCRIPTION OF PROCEDURE: The patient was accompanied to cystoscopy room and after adequate anesthesia, was placed in a dorsal lithotomy position, prepped and draped. A 20 cystoscope was passed. The anterior urethra was normal. Prostatic fossa was normal. The bladder was examined with a 30 and 70-degree lens system and it was normal. A guidewire was passed and got up to the stone in the right proximal ureter and I had difficulty getting the guidewire past the stone. Therefore, I passed the yellow open-ended catheter, one was able to manipulate it and past the stone. It was removed. The guidewire was left in place and over the guidewire, a 6-Slovak, 28 cm stent was passed. It coiled nicely in the kidney, the other in the bladder. He was then moved to Operating Room 5 and placed on the lithotripsy table. The stone was localized and impulses were directed at the stone starting at 16 kV increasing to 20 kV. A total of 2000 impulses were directed. The procedure was terminated at this point, because of his low platelet count. It was felt that it would be better to limit the amount of shock waves and if they are still not adequately fragment it with the stent set in place for two weeks, it would cause dilatation and then it would be easier to completely fragment. He was therefore accompanied to recovery area. PLAN: We will keep him overnight for observation because of his low platelet count. PATIENT'S NAME: CYRUS SANTIAGO [facility] AGE: 56 Y [address] ROOM: [place] [address] LOCATION: [facility] [place] ADMIT DATE: 11/25/2016 OR/Procedure Report DISCHARGE DATE: FAMILY PHYSICIAN: Dominique Dickens ATTENDING PHYSICIAN: Jesse Velarde MD JESSICA NEGRETE/modl /[id number] CC: STEVE Bobby d: 11/25/16 1155 t: 11/26/16 0441, OPERATIVE SUMMARY
--- NOTE | ~2016-11-25 | HP ---
PATIENT'S NAME: CYRUS SANTIAGO [facility] AGE: 56 Y [address] ROOM: [place] [address] LOCATION: [facility] [place] ADMIT DATE: 11/25/2016 History & Physical DISCHARGE DATE: FAMILY PHYSICIAN: Dominique Dickens ATTENDING PHYSICIAN: Jesse Pacheco DATE OF SERVICE: HISTORY OF PRESENT ILLNESS: A 56-year-old male who has a long history of passing ureteral stones with intermittent bouts of pain both on the right and left side. He was first seen here in January 2016 because of hematuria. In 1999, stones were removed and it was a calcium oxalate stone. He has had no further trouble since then. His voiding pattern is fairly normal except he does have nocturia times 4 to 5. During the daytime, he voids every 2 to 3 hours. In November 2015, he was started on Ditropan 5 mg b.i.d. with poor response. He has no other history of urinary tract disease or infections. Family historyis unremarkable. In 1997, he was seen at the [facility] because of a brain tumor. At that time, he had a craniotomy and was treated with radiation and was not expected to live more than 3 to 4 years, which of course has not been accurate. Presently, he is living at an assisted living in [place], but basically takes care of himself. In January 2016, he was scheduled for cysto, ESWL of his stones, but at that time he was found to have a very low platelet count. 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 He was scheduled several times for followup, but he failed to keep his appointments. He was scheduled for followup CT scan in October 2016, which he did not keep. He also did not keep his 2016 appointment with me. He then had a followup CT scan that showed a 7 mm stone in the right proximal ureter with some hydronephrosis. He is scheduled now for cystoscopy, stents, and ESWL. PAST MEDICAL HISTORY: PATIENT'S NAME: CYRUS SANTIAGO [facility] AGE: 56 Y [address] ROOM: [place] [address] LOCATION: [facility] [place] ADMIT DATE: 11/25/2016 History & Physical DISCHARGE DATE: FAMILY PHYSICIAN: Dominique Dickens ATTENDING PHYSICIAN: Jesse Pacheco See history and physical from Family Practice. PHYSICAL EXAMINATION: GENERAL: A well-developed, well-nourished male. CHEST: Clear. HEART: Normal sinus rhythm. ABDOMEN: Soft with no palpable masses. : Normal penis. Testicles are normal. Prostate is slightly enlarged and benign. RECTAL: Negative. IMPRESSION: 1. Bilateral nephrolithiasis. 2. Right proximal ureteral stone. PLAN: Cysto, stent, and ESWL. JESSE PACHECO MD EKL/modl /[id number] D: [id number] T: [id number] HISTORY & PHYSICAL
[2016-11-25 08:03] LABS: BASOPHIL % 0.8 %; EOSINOPHIL # 0.1 K/uL (0.0-0.5); EOSINOPHIL % 2.9 %; HEMATOCRIT 36.9 % (37.0-53.0); HEMOGLOBIN 13.2 g/dL (12.0-17.0); IMMATURE GRANULOCYTE % 0.3 %; LYMPHOCYTE # 0.8 K/uL (0.8-4.0); MCH 33.8 pg (27.0-34.0); MCHC 35.8 gm/dL (32.0-36.5); MCV 94.4 fl (83.0-98.0); MONOCYTE # 0.4 K/uL (0.0-1.0); MONOCYTE % 10.6 %; MPV 8.6 fl (9.4-12.4); NEUTROPHIL # (ANC) 2.4 K/uL (1.4-9.0); NEUTROPHIL % 63.4 %; NRBC % 0 /100WBC (0-0.00); PLATELET COUNT 50 K/uL (150-450); RBC 3.91 M/uL (4.00-6.00); RDW-CV 13.6 % (11.9-14.6); WBC 3.8 K/uL (4.0-11.0)
[2016-11-25 08:18] LABS: ALBUMIN 3.1 gm/dL (3.5-5.0); ALK PHOS 256 IU/L (33-138); ALT 31 IU/L (12-78); ANION GAP 10.7 (10.0-19.0); AST 37 IU/L (10-40); BLOOD UREA NITROGEN 16 mg/dL (6-24); CALCIUM 8.6 mg/dL (8.5-10.5); CHLORIDE 113 mMol/L (96-110); CO2 26 mMol/L (22-32); CREATININE 0.9 mg/dL (0.6-1.3); ESTIMATED GFR (MDRD EQUATION) > 60; POTASSIUM 3.7 mMol/L (3.7-5.1); TOTAL BILIRUBIN 0.8 mg/dL (0.0-1.5); TOTAL PROTEIN 6.7 g/dL (6.0-8.4)
[2016-11-25 08:19] LABS: SODIUM 146 mMol/L (135-145)
--- NOTE | 2016-11-25 14:54 | NUR ---
Significant Event:incontinent of urine-does seem to dribble constantly, has voided x2 per urinal but incontinent most of the time, strained all urine, urine is pink with scant blood fibers, right arm is larger than left-patient states it has been like that for 1 1/2 years, medications restarted, patient up with assist but does not want help, explained we do not want him to fall so we would need to be at his side, denies he is diabetic but takes Amaryl not very diet compliant, platelets were low before OR given 1 unit platelets. Follow up:
[2016-11-26 03:26] LABS: BASOPHIL % 0.7 %; EOSINOPHIL # 0.1 K/uL (0.0-0.5); EOSINOPHIL % 3.1 %; HEMATOCRIT 37.3 % (37.0-53.0); HEMOGLOBIN 13.4 g/dL (12.0-17.0); IMMATURE GRANULOCYTE % 0.5 %; LYMPHOCYTE # 0.9 K/uL (0.8-4.0); LYMPHOCYTE % 21.2 %; MCH 33.5 pg (27.0-34.0); MCHC 35.9 gm/dL (32.0-36.5); MCV 93.3 fl (83.0-98.0); MONOCYTE # 0.5 K/uL (0.0-1.0); MONOCYTE % 12.9 %; MPV 8.6 fl (9.4-12.4); NEUTROPHIL # (ANC) 2.6 K/uL (1.4-9.0); NEUTROPHIL % 61.6 %; NRBC % 0 /100WBC (0-0.00); RDW-CV 13.4 % (11.9-14.6); WBC 4.2 K/uL (4.0-11.0)
[2016-11-26 03:41] LABS: PLATELET COUNT 67 K/uL (150-450)
--- NOTE | 2016-11-26 07:22 | NUR ---
Significant Event: *RESUMED CARE FROM * A&Ox3, HTN: SBP 170s-150s. All other VSS on room air/CPAP. Bloody urine, incontinenet at times. Denies pain. 1-2PA. Repositions self. Right arm edema. Follow up:
--- NOTE | 2016-11-26 11:13 | NUR ---
SPOKE TO YUNIER AT [facility] AND INFORMED HER THAT CYRUS NEED A RIDE BACK TO [facility], SHE REPORTS THAT THEY WILL BE HERE IN 15-20 MINUTES TO GET CYRUS. I INFORMED HIS NURSE OF THIS.
--- NOTE | 2016-11-26 11:31 | NUR ---
Patient is alert and oriented, slightly hypertensive. R) arm is flaccid from previous craniotomy. SBA with walker. His urine is still bloody, needs to strain all urine for kidney stones. Only complaint of pain was a chronic headache.
--- NOTE | 2016-11-26 11:33 | NUR ---
D: ORDERS RECEIVED FOR THE PATIENT TO BE DISCHARGED TO THE ASSISTED LIVING FACILITY TODAY. I: DISMISSAL INSTRUCTIONS WERE PREPARED AND REVIEWED WITH THE PATIENT VIRTUALLY. THE FOLLOWING INFORMATION WAS WAS DISCUSSED INCLUDING KRAMES TEACHING SHEETS PROVIDED: STENTS, URETERAL, UNDERSTANDING KIDNEY STONES, IDENTIFYING KIDNEY STONES, PREVENTING KIDNEY STONES, AND PREVENTING DVT. NO NEW MEDICATIONS WERE STARTED. DISCUSSED FOLLOW UP APPOINTMENTS AND A KUB THAT IS SCHEDULE HERE AT THE HOSPITAL ON December. THE PATIENT WAS INSTRUCTED TO STRAIN HIS URINE AND BRING ALL STONE FRAGMENTS TO THE OFFICE UPON FOLLOW UP. R: THE PATIENT VERBALIZED UNDERSTANDING OF THE DISMISSAL EDUCATION AT THE TIME OF TEACHING WITH NO FURTHER QUESTIONS. A COURTESY PACKET WAS PROVIDED TO THE [employer] [employer] TRANSPORTING THE PATIENT WITH ALL OF THIS INFORMATION P: THE ABOVE INFORMATION WAS SHARED WITH THE PRIMARY NURSE AND THE CHARGE NURSE THAT THE PATIENT DISMISSAL EDUCATION WAS COMPLETED. HE IS READY FOR DISCHARGE TO THE FRONT DOOR VIA WHEEL CHAIR BY NURSING STAFF.
== END 2016-11-26 11:45 | disposition other institution (70) ==
LOC: GSDC 07:04 → GMSU 07:05 → GSDC 14:00
PROVIDERS: Urology
PROC: 0TF6XZZ Fragmentation in Right Ureter, External Approach (ICD-10-PCS; principal; 2016-11-25)
PROC: 0T768DZ Dilation of Right Ureter with Intraluminal Device, Via Natural or Artificial Opening Endoscopic (ICD-10-PCS; 2016-11-25)
DX: N20.1 Calculus of ureter (principal); E78.5 Hyperlipidemia, unspecified; E11.9 Type 2 diabetes mellitus without complications; I10 Essential (primary) hypertension; R56.9 Unspecified convulsions; E87.6 Hypokalemia; F32.9 Major depressive disorder, single episode, unspecified; R25.1 Tremor, unspecified; M51.16 Intervertebral disc disorders with radiculopathy, lumbar region; G47.30 Sleep apnea, unspecified; M47.26 Other spondylosis with radiculopathy, lumbar region; Z88.6 Allergy status to analgesic agent; Z79.899 Other long term (current) drug therapy; Z98.890 Other specified postprocedural states
CPT/HCPCS: C1769; C2617; J0713; J2001; J7030; J7040; P9035

== ENCOUNTER → 2016-12-11 | Outpatient (CLI) | payer MEDICARE ==
--- NOTE | ~2016-12-11 | HP ---
PATIENT'S NAME: CYRUS SANTIAGO [facility] AGE: 56 Y [address] ROOM: [place] [address] LOCATION: [facility] ADMIT DATE: 12/11/2016 History & Physical DISCHARGE DATE: FAMILY PHYSICIAN: Dominique Dickens ATTENDING PHYSICIAN: Jesse Pacheco DATE OF SERVICE: INTERIM HISTORY: This is a 56-year-old male who has a long history of having stones. He recently had a stent placement and ESWL of a stone in the right proximal ureter. His followup KUB still revealed significant stone in that area and he is seen now for 2nd treatment. Please see his history and physical dictated on November 25, 2016 for complete past history. PAST MEDICAL HISTORY: See history and physical from family practice, Dr. Dickens. PHYSICAL EXAMINATION: GENERAL: Well-developed, well-nourished male. CHEST: Clear. HEART: Normal sinus rhythm. ABDOMEN: Soft but no palpable masses. : Normal penis. Testicles are normal. Prostate is slightly enlarged and benign. RECTAL: Negative. IMPRESSION: Right proximal ureteral stone. PLAN: ESWL. JESSE PACHECO MD EKL/modl PATIENT'S NAME: CYRUS SANTIAGO [facility] AGE: 56 Y [address] ROOM: [place] [address] LOCATION: [facility] ADMIT DATE: 12/11/2016 History & Physical DISCHARGE DATE: FAMILY PHYSICIAN: Dominique Dickens ATTENDING PHYSICIAN: Jesse Pacheco /[id number] D: [id number] T: [id number] HISTORY & PHYSICAL
== END | disposition disaster alternative care site (69) ==
LOC: GRAD 12-10 13:00
DX: R31.9 Hematuria, unspecified (principal); M54.9 Dorsalgia, unspecified; N20.2 Calculus of kidney with calculus of ureter; Z96.0 Presence of urogenital implants

== ENCOUNTER 2016-12-23 07:19 | Observation (INO) | payer MEDICARE ==
[~2016-12-23] VITALS: Ht 180.3 cm; Wt 143.6 kg
--- NOTE | ~2016-12-23 | OR ---
PATIENT'S NAME: CYRUS SANTIAGO [facility] AGE: 56 Y [address] ROOM: [address] [address] LOCATION: [facility] ADMIT DATE: 12/23/2016 OR/Procedure Report DISCHARGE DATE: 12/24/2016 FAMILY PHYSICIAN: Dominique Dickens ATTENDING PHYSICIAN: Jesse Pacheco SURGEON: Jesse Pacheco MD LIBRARY CLERICAL ASSISTANT: DATE OF PROCEDURE: 12/23/2016 PREOPERATIVE DIAGNOSIS: Right proximal ureteral stone. POSTOPERATIVE DIAGNOSIS: Right proximal ureteral stone. PROCEDURE PERFORMED: ESWL, right proximal stone. PROCEDURE IN DETAIL: The patient was taken to the operating room #5, placed on the lithotripsy table, and the stone was localized. Localized impulses were directed, starting at 14 kV increasing to 24 kV. A total of 3000 impulses were directed. It appeared that the stone fragmented better this time than the previous treatment. He was then accompanied to recovery area. From there he will be admitted for overnight observation to be sure he does not have any significant hematuria from his low platelet count. JESSE PACHECO MD EKL/modl /[id number] d: 12/23/16 1501 t: 12/25/16 0434, OPERATIVE SUMMARY
[2016-12-23 07:51] LABS: EOSINOPHIL # 0.1 K/uL (0.0-0.5); EOSINOPHIL % 4.5 %; HEMATOCRIT 36.5 % (37.0-53.0); HEMOGLOBIN 13.2 g/dL (12.0-17.0); IMMATURE GRANULOCYTE % 0.3 %; LYMPHOCYTE # 0.8 K/uL (0.8-4.0); LYMPHOCYTE % 24.4 %; MCH 34.9 pg (27.0-34.0); MCHC 36.2 gm/dL (32.0-36.5); MCV 96.6 fl (83.0-98.0); MONOCYTE # 0.4 K/uL (0.0-1.0); MONOCYTE % 12.7 %; MPV 8.7 fl (9.4-12.4); NEUTROPHIL # (ANC) 1.8 K/uL (1.4-9.0); NEUTROPHIL % 57.1 %; NRBC % 0 /100WBC (0-0.00); RBC 3.78 M/uL (4.00-6.00); WBC 3.1 K/uL (4.0-11.0)
[2016-12-23 07:56] LABS: PLATELET COUNT 50 K/uL (150-450)
--- NOTE | 2016-12-23 17:50 | NUR ---
Significant event: Pt. had ESWL this AM on right. IV to L)hand infusing 1/2NS at 100 ml/hr. Staying for observation after platelets administered for low platelets and monitor for bleeding. Urine is dark, concentrated, no sign of blood in urine. Strain all urine for stones. Pt. has hx of seizures, brain CA, low back pain, and hx of kidney stones. Lives at [place]. Walker in room for transfers. Has right sided weakness due to complications of brain CA. VSS, on RA. A&Ox3. Has CPAP at home. Called brother and he should bring. Glasses at bedside. Foot pumps on for VTE prophylaxis. Plan to d/c home tomorrow.
--- NOTE | 2016-12-24 04:22 | NUR ---
Significant Event: Patient alert and oriented X3. Forgetful at times. Bed alarm at all times. Straining urine. History of seizures, brain tumor and r) sided weakness. Received some platelts in surgery. R) hand edema. From [place]. Vitals stable and on room air. L) hand IV. Follow up: Bed alarm
--- NOTE | 2016-12-24 08:40 | NUR ---
DISCHARGE: D: ORDERS RECEIVED FOR THE PATIENT TO BE DISCHARGED BACK TO THE ASSISTED LIVING FACILITY TODAY. I: DISMISSAL INSTRUCTIONS WERE PREPARED AND REVIEWED WITH THE PATIENT VIRTUALLY. THE FOLLOWING INFORMATION WAS DISCUSSED INCLUDING KRAMES TEACHING SHEETS PROVIDED: LITHOTRIPSY, SHOCK WAVE, IDENTIFYING KIDNEY STONES, AND PREVENTING DVT. REVIEWED THAT THAT DR. PACHECO WILL CALL [facility] WITH ANY FOLLOW UP APPOINTMENT NEEDED AND THERE ARE NO NEW MEDICATIONS. R: THE PATIENT VERBALIZED UNDERSTANDING OF THE DISMISSAL EDUCATION AT THE TIME OF TEACHING WITH NO FURTHER QUESTIONS. P: THE ABOVE INFORMATION WAS SHARED WITH THE PRIMARY NURSE AND THE CHARGE NURSE THAT THE PATIENT'S DISMISSAL EDUCATION WAS COMPLETED. THE PATIENT IS READY FOR DISCHARGE VIA WHEEL CHAIR TO THE FRONT DOOR BY NURSING STAFF WHEN [facility] IS AVAILABLE TO TRANSPORT.
== END 2016-12-24 09:38 | disposition disaster alternative care site (69) ==
LOC: GSDC 07:19 → GMSU 11:30 → GSDC 11:31 → GMSU 11:31 → GSDC 14:00 → GMSU 12-24 09:38 → GSDC 12-24 09:38 → GMSU 12-24 09:38
PROVIDERS: ADMIT Urology
PROC: 0TF6XZZ Fragmentation in Right Ureter, External Approach (ICD-10-PCS; principal; 2016-12-23)
DX: N20.1 Calculus of ureter (principal); I10 Essential (primary) hypertension; E11.9 Type 2 diabetes mellitus without complications; G47.33 Obstructive sleep apnea (adult) (pediatric); Z99.89 Dependence on other enabling machines and devices; K21.9 Gastro-esophageal reflux disease without esophagitis; E78.5 Hyperlipidemia, unspecified; D64.9 Anemia, unspecified; Z88.8 Allergy status to other drugs, medicaments and biological substances; Z79.899 Other long term (current) drug therapy
CPT/HCPCS: G0378; J2001; J7030; J7040; P9035